=== PATIENT | male | born 1945 | race Caucasian/White ===

== ENCOUNTER 2024-12-31 11:54 | Emergency (ER) | payer BC ==
[~2024-12-31] VITALS: Ht 177.8 cm; Wt 69.9 kg
[2024-12-31 12:07] VITALS: BP 131/72; PULSE 84; RESP 16; O2SAT 97
--- NOTE | 2024-12-31 12:53 | RADIOLOGY REPORT ---
CLINICAL INDICATION: lt shoulder pain TECHNIQUE: 2 radiographic views of the left shoulder were obtained. Comparison: None FINDINGS/IMPRESSION: There is no evidence of acute fracture or dislocation. 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
--- NOTE | 2024-12-31 14:16 | Physician Documentation ---
History of Present Illness ~ Chief Complaint: Shoulder pain Stated Complaint: L SHOULDER PAIN Time Seen by MD: 14:08 HPI This is an 79-year-old male who presents with left shoulder pain onset one-week prior following a ground level trip and fall, patient reports pain is primarily in the anterior shoulder worse when trying to lift his arm, patient reports that he is unable to lift his arm to 90 due to pain. Patient reports no head strike or loss of consciousness. Patient reports no other acute symptoms or concerns including no numbness or weakness in arm or hand. Medication Reconciliation Allergies: Coded Allergies: codeine (Verified Allergy, Unknown, 12/31/24) Past Medical History Past Medical History: No Pertinent History Review of Systems ROS As stated above in the HPI, otherwise all systems are reviewed and negative. Physical Exam Vital Signs: Temperature: 97.5, Heart Rate: 84, Respiratory Rate: 16, BP: 131/72, Pulse Oximetry: 97, Weight: 69.900 Oxygen Flow Rate: 0 Physical Exam VITALS: Reviewed and as above. GENERAL: Alert, nontoxic appearing, no apparent distress. RESPIRATORY: No increased work of breathing, no respiratory distress, speaking in full clear sentences CV: Brisk capillary refill in left hand and left radial pulse intact MUSCULOSKELETAL: Left shoulder tender to anterior aspect, nontender to other as pects, no deformity, no ecchymosis, no swelling, active range of motion limited to below 90 forward flexion and adduction, pain elicited with passive range of motion at 90 forward flexion and 90 adduction NEURO: Sensation intact distal to injury in left arm and hand Progress Results/Orders Results/Orders Vital Signs 12/31/24 12/31/24 12:07 14:35 Temp 97.5 97.5 Pulse 84 Resp 16 B/P (MAP) 131/72 Pulse Ox 97 O2 Flow Rate 0 EKG/XRAY/CT/US/VASC/MRI Bone/Soft Tissue X-Ray (Ext.) : Additional Comment Exam: SHOULDER, COMPLETE (MIN 2 VWS) CLINICAL INDICATION: lt shoulder pain TECHNIQUE: 2 radiographic views of the left shoulder were obtained. Comparison: None FINDINGS/IMPRESSION: There is no evidence of acute fracture or dislocation. 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 Electronically Signed by:ROBERTO WILDER MD Date & Time: 12/31/24 125 Dictated by: ROBERTO WILDER MD Dictation date and time: 12/31/24 1251 I have reviewed and agree with the radiology report. I have reviewed and interpreted the imaging as: No fracture or dislocation Medical Decision Making Findings This 79-year-old male presented with left shoulder pain following a ground level trip and fall one week prior. Physical exam demonstrated anterior shoulder tenderness and limited ROM of shoulder though remainder of exam was without significant findings and the arm was neurovascularly intact. Patient will require follow up with orthopedist for evaluation of soft tissue injury of shoulder. Patient was placed in shoulder immobilizer for comfort. Patient well appearing, pain controlled, and hemodynamically stable appropriate for ou tpatient follow up. Patient provided homecare instructions, follow up instructions, and return precautions which he verbalized understanding of. Differential Dx:Considerations: Include: AC separation, Adhesive capsulitis, arthritis, Bicipital tendonitis, Dislocation, Fracture: Humerus, Fracture: Scapula, Fracture: Clavicle, Impingement syndrome, Neurovascular Injury, Rotator cuff injury, SC dislocation, Sprain Departure Time of Disposition: 14:16 Disposition: 01 HOME / SELF CARE / HOMELESS Impression: Primary Impression: Shoulder pain Qualified Codes: M25.512 - Pain in left shoulder Condition: Improved Discharge Instructions: Shoulder Pain, [id number] Additional Instructions: Your x-ray did not show a fracture in your shoulder, based on your limited range of motion and pain in your shoulder activity soft tissue injury, this will require follow up with an orthopedist, please follow up with your preferred orthopedist. Please follow up with your primary care provider in the next few days. Please return to the emergency department for any new or worsening concerning symptoms. Referrals: NO PRIMARY CARE PROVIDER (PCP) Education Educated: Patient Educated regarding: diagnosis, treatment, prognosis, need for follow up Signature Scribe Signature: No Scribe Attestation: The note accurately reflects work and decisions made by me.BROOKS Freeman 01/02/25 17:46 GARRET BROWN Dec 31, 2024 14:16
[2024-12-31 14:35] VITALS: TEMP 97.5
== END 2024-12-31 14:36 | disposition home or self-care (01) ==
LOC: ER 11:54
DX: M25.512 Pain in left shoulder (principal); Z88.5 Allergy status to narcotic agent
CPT/HCPCS: 73030; 99283